=== PATIENT | male | born 1940 | race Caucasian/White ===

== ENCOUNTER 2025-06-20 15:22 | Inpatient (IN) | payer MEDICARE, OTHER, SELFPAY ==
[2025-06-20] VITALS (9 sets, daily range): BP systolic 143–159; BP diastolic 82–95; BMI 29.8
[2025-06-20 11:28] LABS: Hematocrit 35.9 % (39.0-52.0); Hemoglobin 12.0 g/dL (13.0-18.0); Mean Corp Hgb Conc. 33.4 g/dL (33.0-37.0); Mean Corpuscular Volume 91.1 fL (80.0-94.0); Nucleated Red Blood Cells % 0 % (-); Platelet Count 158 10^3/uL (130-400); Red Cell Dist. Width 14.2 % (11.5-14.5)
[2025-06-20 12:02] LABS: ALT (SGPT) 15 U/L (0-50); AST (SGOT) 21 U/L (17-59); Albumin 4.3 g/dl (3.5-5.0); Alkaline Phosphatase 67 U/L (38-126); Blood Urea Nitrogen 63 mg/dl (9-20); Calcium 9.1 mg/dl (8.4-10.2); Carbon Dioxide 17 mmol/L (22-30); Chloride 108 mmol/L (98-107); Glucose 116 mg/dl (70-99); Potassium 5.7 mmol/L (3.5-5.1); Sodium 137 mmol/L (135-145); Total Protein 6.9 g/dl (6.3-8.2); eGFR 6.72
--- NOTE | 2025-06-20 13:13 | ED.GENMED ---
History of Present Illness
General
Chief Complaint: Abnormal Lab Value
Source: patient, records and spouse
Exam Limitations: none
Time Seen by Provider: 06/20/25 12:38
Nursing documentation reviewed up to this point in time: agreed with
History of Present Illness
History of Present Illness:
85-year-old male referred by his PCP for acute renal failure, he has felt fatigued trouble urinating for a few weeks had outpatient blood work and a CAT scan that showed urinary obstruction, he states he voided 2 small amounts in the waiting room
air, no prior episodes, no fever or chills he drinks wine socially, not to excess non-smoker
He takes lisinopril, Norvasc, apparently started on Cipro recently
Past History
Past History
ED Past Medical History: Negative Arrthythmia or CAD
ED Past Surgical History: Negative Cardiac
Social History
Tobacco: Non-smoker
Alcohol: Occasional
Drug: None
Personal:
Living: with family
Employment: Retired
Review of Systems
Review of Systems
All Other Systems: Not applicable
Constitutional: Reports fatigue
EENT: Reports no symptoms
Respiratory: Reports no symptoms
ABD/GI: Reports anorexia
: Reports difficulty voiding
Musculoskeletal: Reports no symptoms
Skin: Reports no symptoms
Neurological: Reports weakness
Endocrine: Reports no symptoms
Phy Exam
Physical Exam
Physical Exam:
Physical Exam
General: no apparent distress, not acutely ill
Neck: Lips are dry
Heart: s1/s2 regular rate and rhythm, no murmur. equal radial pulses.
Lungs: no acute respiratory distress. clear bilaterally
Abdomen: Tenderness in the suprapubic region
Neuro: alert and oriented. no focal neurological deficits
Skin: no rash
Psychiatric: well kept. interactive and cooperative
Extremities: no edema.
Course
Orders/Labs/Results
Orders:
Orders
06/20/25 11:20
CBC/With Diff [Complete Blood Count/With Diff] Urgent
Comprehensive Metabolic Panel Urgent
06/20/25 13:06
Bladder Scan- Treatment ONCE
Boswell Placement- Treatment ONCE
Reason for insertion: Acute Retention
06/20/25 13:53
Urinalysis Reflex To Culture Urgent
Date Specimen was Collected: 06/20/25
Time Specimen was Collected: 13:49
06/20/25 14:01
0.9% Sodium Chloride 1000 ml [Nss] 2,000 ml IV BOLUS
06/20/25 14:02
diazePAM [Valium Injection] 5 mg IV NOW STA
06/20/25 14:05
Electrocardiogram (*1) Urgent
Reason for Study: Abdominal Pain
EKG- Treatment ONCE
Abnormal Lab Results
06/20/25
11:20
RBC 3.94 L 10^6/uL
(4.70-6.10)
Hgb 12.0 L g/dL
(13.0-18.0)
Hct 35.9 L %
(39.0-52.0)
Absolute Lymphs (auto) 1.0 L 10^3/uL
(1.2-3.4)
Neutrophils % 76.8 H %
(42.2-75.2)
Lymphocytes % 14.0 L %
(20.5-51.1)
Potassium 5.7 H mmol/L
(3.5-5.1)
Chloride 108 H mmol/L
(98-107)
Carbon Dioxide 17 L mmol/L
(22-30)
BUN 63 H mg/dl
(9-20)
Creatinine 7.4 H* mg/dL
(0.7-1.3)
Glucose 116 H mg/dl
(70-99)
06/20/25 11:20
06/20/25 11:20
Vital Signs
Initial and Last Documented VS:
Initial Vital Signs
Temp Pulse Resp BP Pulse Ox
98.6 F 104 16 159/95 98
06/20/25 11:11 06/20/25 11:11 06/20/25 11:11 06/20/25 11:11 06/20/25 11:11
Last Documented Vital Signs
Temp Pulse Resp BP Pulse Ox
98.6 F 104 16 159/95 98
06/20/25 11:11 06/20/25 11:11 06/20/25 11:11 06/20/25 11:11 06/20/25 13:14
MDM/Problems Addressed
Differential Diagnosis Includes:
ARF postobstructive versus prerenal versus renal
MDM/Problems Addressed:
ARF
*Radiology
Radiology exam reviewed: radiology read reviewed
*Pulse Oximetry
SaO2: 98
Oxygen Mode of Delivery: Room air
Patient hypoxic: no
*EKG
Interpreted by ED Provider?: Yes
Interpretation: abnormal
Comparison EKG: no comparison EKG present
Heart Rate: 78
Rate: normal
Ischemia: non-specific ST changes
*Parachute Marker Interpretation
Rate: normal
Interpretation: normal
Heart Rate: 78
Rhythm: sinus
*Critical Care Note
Total Time (30-74mins, 75-104mins- exclusive of procedures): Not Applicable
Data Reviewed
Review of Other/Old Records Reveals: Labs, Records and Radiology Studies
Source: patient, records and spouse
Prescriptions/Medications Considered But Not Given:
Treatment for hyperkalemia
Further Testing Considered But Not Given:
Ultrasound
Update Note
Update Note:
Update, workup pretty much completed as an outpatient, will BladderScan him ask RN to place Boswell will likely require admission
2 PM Boswell placed patient with over 1500 mL of dark tea bloody urine with some cramps will clamp the bag for now,
ED Attending Note
-
Portions of this chart may have been created with voice recognition software.� Occasional wrong word or��sound alike� substitutions may have occurred due to the inherent limitations of voice recognition software.
Discharge Plan
Departure
Patient Disposition: Admit
Date of Disposition: 06/20/25
Time of Disposition: 14:04
Admit to: Med/Surg
Presentation/result/management discussed w/ accepting MD/DO: Hospitalist
Patient with high blood pressure during this ER visit?: No
Condition: Fair
Covid-19: Not Applicable
Discharge Problem:
ARF (acute renal failure), Obstructed, uropathy
Prescriptions:
No Action
lisinopril 20 mg Tablet
20 mg PO DAILY
amlodipine [Norvasc] 10 mg Tablet
10 mg PO DAILY
ibuprofen [Advil] 200 mg Tablet
400 mg PO Q8HPRN PRN (Reason: mild pain)
fluticasone propionate [Flonase] 50 mcg/actuation [place],Suspension
1 spray INTRANASAL BIDPRN PRN (Reason: allergies)
ICaps AREDS 4,296 mcg-226 mg-90 mg Capsule
1 cap PO DAILY
ciprofloxacin HCl [Cipro] 500 mg Tablet
500 mg PO BID
Rx Instructions:
for 10 days starting 06/18/25
Interventions
Interventions:
*Risk Screen - Suicide Last Done: 06/20/25 13:47
*General Assessment Last Done: 06/20/25 13:47
*Neglect/Abuse Screening Last Done: 06/20/25 13:47
*ED COVID-19 Vaccine History Last Done: 06/20/25 13:47
Discharge Date and Time
Print Language: ESTONIAN
[2025-06-20 14:08] LABS: Urine Character Clear (Clear)
--- NOTE | 2025-06-20 14:15 | W.CON.NEPH ---
Consultation
-
Date/Time Consultation Requested: 06/20/2025 2:00 PM
Date/Time Consultation Performed: 06/20/2025 2:00 PM
Requesting Provider: Dr. Aponte
Performing Provider: Dr. Beck
Reason for Consultation: Acute renal failure/metabolic acidosis/hyperkalemia
Medical History
-
Chief Complaint: Acute kidney failure/hyperkalemia/metabolic acidosis
History of Present Illness:
85-year-old male referred by his PCP for acute renal failure, he has felt fatigued trouble urinating for a few weeks had outpatient blood work and a CAT scan that showed urinary obstruction, he states he voided 2 small amounts the patient was
recently initiated on ciprofloxacin for suspected UTI. He does frequently use NSAIDs for joint pains. he is maintained on amlodipine and lisinopril for hypertension. When he presented to the hospital he was in acute renal failure with a creatinine
of 7.4 and a potassium of 5.7 with associated nongap metabolic acidosis. Boswell catheter was placed with large bloody output [id number]. Nephrology was consulted for acute kidney injury hyperkalemia and nongap metabolic acidosis.
Past Medical History
Hypertension
Social History
Tobacco: Smoker
Alcohol: Occasional
Family History
No CKD
Allergies / Home Medications
Allergy/AdvReac Type Severity Reaction Status Date / Time
No Known Allergies Allergy Verified 06/20/25 11:10
�Medication �Instructions �Recorded �Confirmed �Type
amlodipine 10 mg tablet (Norvasc) 10 mg PO DAILY 06/20/25 06/20/25 History
ciprofloxacin HCl 500 mg tablet 500 mg PO BID 06/20/25 06/20/25 History
(Cipro)
fluticasone propionate 50 1 spray intranasal BIDPRN PRN 06/20/25 06/20/25 History
mcg/actuation nasal allergies
spray,suspension
ibuprofen 200 mg tablet (Advil) 400 mg PO Q8HPRN PRN mild pain 06/20/25 06/20/25 History
lisinopril 20 mg tablet 20 mg PO DAILY 06/20/25 06/20/25 History
vitamins A,C,E-ysve-xbxsio 4,296 1 cap PO DAILY 06/20/25 06/20/25 History
mcg-226 mg-90 mg capsule
Review of Systems
-
History Source: Patient
All other systems: Negative unless noted
EENT: No Symptoms
Respiratory: No Symptoms
Cardiac: No Symptoms
Abdomen/GI: No Symptoms
: Dysuria, Difficulty Voiding and Bleeding
Musculoskeletal: Edema
Physical Exam
Vital Signs
Vital Signs
Temp Pulse Resp BP Pulse Ox
98.6 F 104 16 159/95 98
06/20/25 11:11 06/20/25 11:11 06/20/25 11:11 06/20/25 11:11 06/20/25 13:14
Lab Results
06/20/25 11:20
06/20/25 11:20
WBC 7.5 10^3/uL (4.8-10.8) 06/20/25 11:20
RBC 3.94 10^6/uL (4.70-6.10) L 06/20/25 11:20
Hgb 12.0 g/dL (13.0-18.0) L 06/20/25 11:20
Hct 35.9 % (39.0-52.0) L 06/20/25 11:20
Plt Count 158 10^3/uL (130-400) 06/20/25 11:20
Sodium 137 mmol/L (135-145) 06/20/25 11:20
Potassium 5.7 mmol/L (3.5-5.1) H 06/20/25 11:20
Chloride 108 mmol/L (98-107) H 06/20/25 11:20
Carbon Dioxide 17 mmol/L (22-30) L 06/20/25 11:20
BUN 63 mg/dl (9-20) H 06/20/25 11:20
Creatinine 7.4 mg/dL (0.7-1.3) H* 06/20/25 11:20
eGFR 6.72 06/20/25 11:20
Glucose 116 mg/dl (70-99) H 06/20/25 11:20
Calcium 9.1 mg/dl (8.4-10.2) 06/20/25 11:20
Albumin 4.3 g/dl (3.5-5.0) 06/20/25 11:20
Physical Exam
General: AOx3, Nontoxic , NAD
HEENT: PERRL, EOMI, Anicteric, Conjunctivae Clear, Ear/Nose Intact, Hearing Normal, Oropharynx Clear/Moist, Dentition Intact, Facial Symmetry, Neck Supple, Neck: Trachea Midline, No JVD and No Thyromegaly, no Bruits
Respiratory: Clear to auscultation bilaterally with normal lung excursion
Cardiac: S1/S2 and Regular Rate/Rhythm
Breast: Deferred by me
Abdomen: Soft, Nontender, Nondistended, Normal Bowel Sounds and No Hepatosplenomegaly
Rectal: Deferred by Provider
Genito-urinary: No Costovertebral Tenderness, Boswell with bloody urine
Extremities: No Clubbing, No Cyanosis and Noted plus one pitting Edema
Skin: No Rash or open lesions
Neuro: Nonfocal/Grossly Intact, CN II-XII (Intact) and Strength (Musculoskeletal exam 5 out of 5 both upper and lower extremities), no asterixis
Hematologic/Lymphatic: No Cervical Lymphadenopathy, No Submandibular Lymphadenopathy and No Supraclavicular Lymphadenopathy
Psych: Mood/afflect pleasant, Insight/judgement good and Appropriate
Vascular: plus 1 pedal and radial pulses
Data Reviewed
-
CT Scan: Report Reviewed by me (Report reviewed of CT of abdomen and pelvis: Notable for bilateral hydronephrosis, distended bladder with likely underlying cystitis)
Labs: Labs Reviewed by me (BMP)
Old Records: Reviewed (Reviewed old labs from date May 15, 2025 creatinine 0.89)
Assessment/Plan
-
Impression:
DILLON (7.4) with bilateral hydronephrosis with suspected bladder outlet obstruction
Hyperkalemia
Nongap metabolic acidosis (AG12)
BPH
Hypertension
Plan:
DILLON: Suspected due to bilateral hydronephrosis from bladder outlet obstruction
Boswell placed
Gross amount of connie blood pouring out will require CBI and urology follow-up for eventual cystoscopy
No acute dialysis requirement yet
Would administer half-normal saline with 75 meq sodium bicarbonate at 100 cc/hr
Closely follow BMP and electrolytes
Hyperkalemia should improve with establishing urinary conduit and alkalize IV fluid
Hold lisinopril and NSAIDs
HTN:
maintain amlodipine
[2025-06-20 14:19] LABS: Urine Red Blood Cell >100 /HPF (0-2); Urine Squamous Cell 0-2 /LPF (Few)
--- NOTE | 2025-06-20 14:40 | W.PN.UPDATE ---
Update Note
Progress Note Update
This note serves as an addendum to the H&P by Jemima Angulo on 06/20/25.
History of Presenting Illness
85 y/o male past medical history of hypertension who presents with urinary retention and abnormal labs. Patient reports increased difficulty urinating over the past few weeks. Patient reports increased fatigue recently. He saw his PCP who ordered
blood work as well as a CT scan. CT scan revealed severely distended bladder with moderate hydronephrosis. Blood work revealed Cr 5.8. With these findings his PCP reffered him to the emergency department for evaluation. Patient denies any
fevers, sweats or chills.
Vital Signs
AFVSS, except intermittently tachycardic
On room air saturating well
Physical Exam
General: Comfortable and Conversant
HEENT: Anicteric and Moist mucous membranes
Respiratory: Clear and Non Labored Respirations
Cardiac: S1/S2 and Regular Rhythm
GI: Soft and Non Tender
Genito-urinary: Bloody Urine and Boswell
Musculoskeletal: No Cyanosis. Bilateral lower extremity edema.
Skin: Warm and Dry
Neuro: Awake, Alert, Oriented and Nonfocal/grossly intact
Psych: Calm
Assessment/Plan
Moderate Hydronephrosis Secondary to Severely Distended Bladder on outside CT imaging
Acute Kidney Injury / Hyperkalemia secondary to Bladder Outlet Obstruction
BPH
-Boswell placed in the emergency room
-Hold lisinopril and NSAIDs
-Consult Nephrology
-Since gross amount of connie blood pouring out, continue CBI
-Continue IVFs with half-normal saline with 75 meq sodium bicarbonate at 100 cc/hr
-Recheck labs later this evening and in AM
Bladder Outlet Obstruction / Gross Hematuria
-Initially Boswell catheter was placed and patient subsequently developed gross hematuria
-Reviewed with Urology who recommends placement of 3-Way catheter and to start CBI
-Monitor H&H
-Start Flomax
-Urinalysis is not consistent with infection, review of urinalysis from outpatient a few days prior (presumably before Cipro was given) was also without suggestion of UTI, WBCs are normal and patient is afebrile -- therefore hold on antibiotics
(although outside imaging suggested concern for pyelonephritis and cystitis, clinical picture is not consistent with that) -- I confirmed with Dr. Valladares who is in agreement that no antibiotics are needed at this time
Non-Anion Gap Metabolic Acidosis
Hyperkalemia
-With relief of obstruction and alkaline IV fluids as above, potassium and acid-base status should improved
-Recheck BMP
Prior Reaction to Ciprofloxacin
New Right Lower Extremity Swelling
-Noted on outside records -- no DVT on recent ultrasound
Essential Hypertension
-Lisinopril on hold due to hyperkalemia and DILLON
-Continue amlodipine with old parameters
Small Bilateral Pleural Effusion and Bilateral Atelectasis
-Based on outside records
-Incentive Spirometer
History of LBBB based on outside records
-Sees outpatient cardiology
Severe Induration of the subcutaneous fat of the lower abdominal wall, on CT Imaging
Diverticulosis
Degenerative Changes in the Spine on outside imaging
Vitamin D Deficiency
DVT Prophylaxis: SCDs only given Hematuria in the urine -- if Hgb stable, can consider starting Heparin subq or Lovenox subq for DVT prophylaxis
Code Status: Full Code
--- NOTE | 2025-06-20 14:48 | HPS.HSE ---
Family Physician
-
Family Physician: Allen Sanchez
Chief Complaint
-
Abnormal Labs, Urinary Retention
History of Present Illness
Patient is an 85 y/o male past medical history of hypertension who presents with urinary retention and abnormal labs. Patient reports increased difficulty urinating over the past few weeks. Patient reports increased fatigue recently. He saw his
PCP who ordered blood work as well as a CT scan. CT scan revealed severely distended bladder with moderate hydronephrosis. Blood work revealed Cr 5.8. With these findings his PCP reffered him to the emergency department for evaluation. Patient
denies any fevers, sweats or chills.
Medical History
Past Medical History
Past Medical History: Reports Other
Additional Past Medical History:
Essential Hypertension
Past Surgical History: Reports Other
Additional Past Surgical History:
Tonsillectomy
Social History
Tobacco: Non-smoker
Alcohol: Daily (Glass of wine nightly)
Family History
Family History: Not pertinent
Allergies / Home Medications
Allergies reflects when Allergies were last updated in [facility].
Home Medications with original date entered in [facility]
Allergy/Medication List:
Allergies
Allergy/AdvReac Type Severity Reaction Status Date / Time
No Known Allergies Allergy Verified 06/20/25 11:10
Home Medications
amlodipine 10 mg tablet (Norvasc) 10 mg PO DAILY 06/20/25
ciprofloxacin HCl 500 mg tablet (Cipro) 500 mg PO BID 06/20/25
fluticasone propionate 50 mcg/actuation nasal spray,suspension 1 spray intranasal BIDPRN PRN allergies 06/20/25
ibuprofen 200 mg tablet (Advil) 400 mg PO Q8HPRN PRN mild pain 06/20/25
lisinopril 20 mg tablet 20 mg PO DAILY 06/20/25
vitamins A,C,F-hyzh-bjpyfh 4,296 mcg-226 mg-90 mg capsule 1 cap PO DAILY 06/20/25
Review of Systems
-
A 12 point ROS was completed and negative except as noted: Yes
Constitutional: Denies Fever or Chills
Respiratory: Denies Cough or Trouble Breathing
Cardiac: Denies Chest Pain or Palpitations
: Reports See HPI
Physical Exam
Vital Signs
Vital Signs
Temp Pulse Resp BP Pulse Ox
98.6 F 104 16 159/95 98
06/20/25 11:11 06/20/25 11:11 06/20/25 11:11 06/20/25 11:11 06/20/25 13:14
Physical Exam
General: Comfortable and Conversant
HEENT: Anicteric and Moist mucous membranes
Respiratory: Clear and Non Labored Respirations
Cardiac: S1/S2 and Regular Rhythm
GI: Soft and Non Tender
Genito-urinary: Bloody Urine and Boswell
Musculoskeletal: No Clubbing and No Cyanosis
Skin: Warm and Dry
Neuro: Awake, Alert, Oriented and Nonfocal/grossly intact
Psych: Calm
Laboratory Results
-
Laboratory Results
Total Bilirubin 0.8 mg/dl (0.2-1.3) 06/20/25 11:20
AST 21 U/L (17-59) 06/20/25 11:20
ALT 15 U/L (0-50) 06/20/25 11:20
Alkaline Phosphatase 67 U/L (38-126) 06/20/25 11:20
Data Reviewed
-
Lab Data: Labs Reviewed by me
Old Records: Reviewed
Impression/Plan
-
Acute Kidney Injury / Hyperkalemia secondary to Bladder Outlet Obstruction
-Consult Nephrology
-Continue IVFs
-Recheck labs later this evening and in AM
Bladder Outlet Obstruction / Gross Hematuria
-Initially Boswell catheter was placed and patient subsequently developed gross hematuria
-Reviewed with Urology who recommends placement of 3-Way catheter and to start CBI
-Monitor H&H
-Start Flomax
-Urinalysis is not consistent with infection therefore will stop antibiotics
Essential Hypertension
-Lisinopril on hold due to hyperkalemia and DILLON
-Continue amlodipine with old parameters
DVT proph:SCDs
Code Status: Full Code
[2025-06-20] MEDS: VALIUM INJECTION 5 MG IV (14:54)
[2025-06-20] MEDS: NSS 2000 IV (15:00)
--- NOTE | 2025-06-20 16:32 | CM ---
Patient seen bedside in ED. Initial assessment completed. Patient is an 85 y/o male past medical history of hypertension who presents with urinary retention and abnormal labs.
Patient resides w/ spouse in a 2STH, 2 pr 3 steps to enter from the outside. Master bedroom, bathroom, kitchen are on the first floor. Patient is independent in all areas, no supportive devices needed. Has grab bar and shower stool in bathroom.
Denies SNF/HC hx.
Address, point of contact and insurance verified
PCP: Allen Sanchez
Pharmacy: [facility]
Plan: Home, will watch for needs
[2025-06-20] MEDS: FLOMAX 0.4 MG PO (17:57)
[2025-06-20] MEDS: SODIUM BICARBONATE 1075 MEQ IV (18:13)
--- NOTE | 2025-06-20 18:18 | CONS.URO ---
Consultation
-
Date/Time Consultation Requested: 06/20/25
Date/Time Consultation Performed: 06/20/25
Requesting Provider: ED
Performing Provider: Jacquelyn
Reason for Consultation: hematuria, AUR, BPH, hydronephrosis, ARF
Medical History
History of Present Illness
85M presenting w/ urinary retention and abnormal labs (Cr 5.8 sa outpatient w/ PCP).
Reports worsening difficulty w/ voiding in last few weeks and increase fatigue.
PCP ordered labs and CT imaging.
CT imaging (outside [facility]) => moderate bilateral hydronephrosis, bladder distention, and enlarged prostate gland.
Cr noted to be 5.8 - referred to [facility] ED.
? Started by PCP on Ciprofloxacin for suspected prostatitis/cUTI.
Review of outpatient labs (05/2025) demonstrates Cr WNL and PSA 2.5.
No prior urologic evaluation.
No prior mention of BPH diagnosis per patient.
Past Medical History
Past Medical History: HTN
Past Surgical History: Tonsilectomy
Social History
Tobacco: Non-smoker
Alcohol: Daily (glass of wine nightly)
Drug: None
Employment: Retired
Family History
Family History: Reviewed & Not Pertinent
Allergies/Home Medications
Allergies
Allergy/AdvReac Type Severity Reaction Status Date / Time
No Known Allergies Allergy Verified 06/20/25 11:10
Home Medications
�Medication �Instructions �Recorded �Confirmed �Type
amlodipine 10 mg tablet (Norvasc) 10 mg PO DAILY 06/20/25 06/20/25 History
ciprofloxacin HCl 500 mg tablet 500 mg PO BID 06/20/25 06/20/25 History
(Cipro)
fluticasone propionate 50 1 spray intranasal BIDPRN PRN 06/20/25 06/20/25 History
mcg/actuation nasal allergies
spray,suspension
ibuprofen 200 mg tablet (Advil) 400 mg PO Q8HPRN PRN mild pain 06/20/25 06/20/25 History
lisinopril 20 mg tablet 20 mg PO DAILY 06/20/25 06/20/25 History
vitamins A,C,G-qlrl-dtoqeb 4,296 1 cap PO DAILY 06/20/25 06/20/25 History
mcg-226 mg-90 mg capsule
Physical Exam
Vital Signs
Vital Signs
Temp Pulse Resp BP Pulse Ox
98.6 F 105 20 154/82 94
06/20/25 11:11 06/20/25 16:50 06/20/25 16:50 06/20/25 16:50 06/20/25 16:50
Physical Exam
General: Well Developed, Well Nourished and No Apparent Distress
HEENT: Normocephalic and Anicteric
Respiratory: Non Labored Respirations
Cardiac: Regular Rhythm
Breast: N/A
GI: Soft, Non Tender and Non Distended
Rectal: Deferred by Provider
Genito-urinary: No Costovertebral Tend, Bloody Urine and Boswell Catheter
Skin: Warm and Dry
Neuro: AO x 3, No Motor Deficits and Nonfocal/Grossly Intact
Hematologic/Lymphatic: No Lymphadenopathy
Psych: Calm and Intact Judgement
Assessment / Plan
-
Hematuria - secondary to rapid bladder decompression
Acute urinary retention
BPH w/ HOLGUIN
Bilateral hydronephrosis
Acute renal failure
H/H WNL
Cr 7.4
UA +RBCs
Boswell catheter placed in ED => 1500 cc dark bloody UOP
Urine bloody in tubing w/o clots, aqueous dark in drainage bag.
- Exchange 2-way catheter to 3-way and initiate CBI
- UA not indicative of UTI - no indication for abx at this time
- Trend Cr and lytes for post-obstructive diuresis
- Start tamsulosin 0.4 mg qhs and finasteride 5 mg daily for BPH
D/w Hospitalist.
Data Reviewed
-
Total Time Spent with Patient (in minutes): 40
Diagnostic Radiology: Discussed with Physician
CT Scan: Report Reviewed by Me and Discussed with Physician
Lab Data: Labs Reviewed and Discussed with Physician
Old Records: Reviewed
[2025-06-20 18:38] LABS: Hematocrit 35.7 % (39.0-52.0); Hemoglobin 12.2 g/dL (13.0-18.0)
[2025-06-20 19:02] LABS: Blood Urea Nitrogen 55 mg/dl (9-20); Calcium 8.9 mg/dl (8.4-10.2); Carbon Dioxide 19 mmol/L (22-30); Chloride 109 mmol/L (98-107); Estimated Creatinine Clearance 10 ml/min; Glucose 115 mg/dl (70-99); Potassium 4.5 mmol/L (3.5-5.1); Sodium 142 mmol/L (135-145); eGFR 8.31
[2025-06-21 03:23] VITALS: BP 142/79
[2025-06-21] MEDS: SODIUM BICARBONATE 1075 MEQ IV (05:27)
[2025-06-21 06:00] VITALS: BMI 27.9
[2025-06-21 07:30] VITALS: BP 153/88
--- NOTE | 2025-06-21 07:45 | W.PN.URO.CBU ---
Today's Communication / Plan
-
- Wean CBI as tolerated in next 24 hrs
- Possible CBI clamp trial in AM (06/22)
- Trend Cr and lytes for post-obstructive diuresis
- Started on tamsulosin 0.4 mg qhs and finasteride 5 mg daily (ordered by Urology)
D/w patient.
D/w Hospitalist.
Assessment / Plan
-
Hematuria - secondary to rapid bladder decompression
Acute urinary retention
BPH w/ HOLGUIN
Bilateral hydronephrosis
Acute renal failure
H/H stable
Cr 7.4 => 6.2 => 5.5
UA +RBCs
Diagnosis
-
Date of Service: June 21, 2025
-
Patient Diagnosis:
Hematuria - secondary to rapid bladder decompression
Acute urinary retention
BPH w/ HOLGUIN
Bilateral hydronephrosis
Acute renal failure
Subjective
-
Having breakfast.
Denies abdominal/suprapubic pain.
Urine clear in tubing on medium rate CBI.
Objective
-
Vital Signs
Temp Pulse Resp BP Pulse Ox
97.4 F 95 16 153/88 97
06/21/25 07:30 06/21/25 07:30 06/21/25 07:30 06/21/25 07:30 06/21/25 07:30
Intake and Output
06/20/25 06/21/25 06/22/25
06:59 06:59 06:59
Intake Total 960 / 960
Output Total 2245 / 7745
Balance -6785 / -6785
Intake:
Oral fluids 960 / 960
Output:
True Urine Output from CBI 7745 / 7745
Laboratory Results
06/21/25 06:15
Physical Exam
-
General - well developed, well nourished, no acute distress
Abdomen - soft, non-tender, non-distended
- 3-way catheter in place w/ clear outflow on medium rate CBI, no clots
Skin - warm & dry with no rash
Extremities - no clubbing, no cyanosis, no edema
Care Review
Data Reviewed
Discussed with: Hospitalist and Nursing
CT Scan: Report Pers Reviewed
Total Time Spent with Patient (in minutes): 35
[2025-06-21 08:00] LABS: Hematocrit 33.1 % (39.0-52.0); Hemoglobin 11.5 g/dL (13.0-18.0); Mean Corp Hgb Conc. 34.7 g/dL (33.0-37.0); Mean Corpuscular Volume 88.0 fL (80.0-94.0); Platelet Count 128 10^3/uL (130-400); Red Cell Dist. Width 13.9 % (11.5-14.5)
[2025-06-21] MEDS: FLOMAX 0.4 MG PO (08:36)
[2025-06-21] MEDS: NORVASC 10 MG PO (08:37)
[2025-06-21 08:53] LABS: Blood Urea Nitrogen 55 mg/dl (9-20); Calcium 8.7 mg/dl (8.4-10.2); Carbon Dioxide 22 mmol/L (22-30); Chloride 109 mmol/L (98-107); Estimated Creatinine Clearance 11 ml/min; Glucose 104 mg/dl (70-99); Magnesium 2.5 mg/dl (1.6-2.3); Potassium 4.1 mmol/L (3.5-5.1); Sodium 142 mmol/L (135-145); eGFR 9.59
--- NOTE | 2025-06-21 09:45 | PTCARENOTE ---
Addendum entered by Kofi Saldana RN 06/21/25 12:55:
Heart rate varying now from 130s to 160s on telemetry. Toprol administered at 12:17pm. Dr Reyes notified. Advised to keep monitoring for now.
Original Note:
At 0800 tachycardia noted on telemetry. HR 120s to 140s. Rhythm regular/irregular. Some P waves visible. Pt asymptomatic, resting in bed. VSS. EKG revealing ST. Dr Murray made aware. Cardiology consulted.
--- NOTE | 2025-06-21 09:55 | W.PN.HOSP.TC ---
Today's Communication/Plan
-
Check TSH
Cardiology consult
Continue CBI
Assessment / Plan
Assessment / Plan
Gen-AAOx3, NAD
HEENT-NC, AT, anicteric, clear oral mm
Neck-supple
CV-reg, no M, +S1/S2
Lungs-clear B/L
Abd-soft, NT, ND
Ext-no edema
Musculoskeletal-no cyanosis, clubbing
Skin-warm and dry
Neuro-grossly non-focal
Psych-calm, cooperative
DILLON -due to obstructive uropathy from bladder outlet obstruction, due to BPH. Bilateral hydronephrosis.
Boswell catheter inserted. Urology consulted. Nephrology consulted.
Creatinine trending down.
Gross hematuria -due to rapid bladder decompression. Continuous bladder irrigation per urology.
Normal anion gap metabolic acidosis -due to DILLON. Improving on bicarb drip.
Tachycardia -sinus versus atrial tach versus other. Patient states he has had fast heart rates every morning for the past couple weeks, settles down in the afternoon. Has minimal symptoms of chest tightness with it. Cardiology consulted. Check
TSH. Electrolytes are normal.
Hyperkalemia -due to DILLON, resolved. Hold lisinopril.
Acute thrombocytopenia -128k, unclear etiology, monitor for now.
Essential hypertension -continue amlodipine.
Diverticulosis
vitamin D deficiency
Full code
Anticipated Discharge: > 48 hours
Subjective/Interval History
-
Date of Service: June 21, 2025
Patient seen and examined. No complaints.
Objective Data
-
Labs:
Laboratory Results
06/21/25
06:15
WBC 7.3
Hgb 11.5 L
Hct 33.1 L
Plt Count 128 L
Sodium 142
Potassium 4.1
Chloride 109 H
Carbon Dioxide 22
BUN 55 H
Creatinine 5.5 H*
Glucose 104 H
Calcium 8.7
Vital Signs:
Vital Signs
Temp Pulse Resp BP Pulse Ox
97.4 F 95 16 153/88 97
06/21/25 07:30 06/21/25 07:30 06/21/25 07:30 06/21/25 07:30 06/21/25 07:30
I&O
06/20/25 06/21/25 06/22/25
06:59 06:59 06:59
Intake Total 960 / 960
Output Total 7745 / 7745
Balance -6785 / -6785
Review of Systems
-
History Source: Patient
All other systems: Reviewed and negative
--- NOTE | 2025-06-21 11:11 | W.PN.NEPH.PH ---
Today's Communication / Plan
-
Maintain IV fluids with half-normal
Maintain Boswell and CBI at direction of urology
Acute kidney injury and hyperkalemia resolved
No dialysis indication
Assessment/Plan
-
Impression:
DILLON (7.4) with bilateral hydronephrosis with suspected bladder outlet obstruction, baseline in 0.89 as of 05/30
Hyperkalemia
Nongap metabolic acidosis (AG12)
BPH
Hypertension
Plan:
DILLON: Suspected due to bilateral hydronephrosis from bladder outlet obstruction
Boswell placed
Creatinine corrected down to 5.5 and potassium down to 4.1 and remains grossly nonoliguric in setting of CBI with clearing of urine
No acute dialysis requirement
Will change IV fluids to half-normal at 125 cc/hr
Closely follow BMP and electrolytes
Hyperkalemia improved with outlet obstruction release
Holding lisinopril and NSAIDs
HTN:
maintain amlodipine
May need to transition antihypertensive to alternative agent if edema that does not resolve
-
-
Date of Service: June 21, 2025
CC / HPI / ROS
-
Chief Complaint:
DILLON
Hyperkalemia
Metabolic acidosis
Hypertension
History of Present Illness:
Metabolic acidosis improving with alkaline IV fluid
Hemodynamically stable on amlodipine
Creatinine improving down to 5.5 and grossly nonoliguric via Boswell
Hyperkalemia resolved
Review of Systems:
Nonoliguric
Urine clearing with CBI
No chest pain or shortness of breath
Labs
-
Labs:
WBC 7.3 10^3/uL (4.8-10.8) 06/21/25 06:15
RBC 3.76 10^6/uL (4.70-6.10) L 06/21/25 06:15
Hgb 11.5 g/dL (13.0-18.0) L 06/21/25 06:15
Hct 33.1 % (39.0-52.0) L 06/21/25 06:15
Plt Count 128 10^3/uL (130-400) L 06/21/25 06:15
Sodium 142 mmol/L (135-145) 06/21/25 06:15
Potassium 4.1 mmol/L (3.5-5.1) 06/21/25 06:15
Chloride 109 mmol/L (98-107) H 06/21/25 06:15
Carbon Dioxide 22 mmol/L (22-30) 06/21/25 06:15
BUN 55 mg/dl (9-20) H 06/21/25 06:15
Creatinine 5.5 mg/dL (0.7-1.3) H* 06/21/25 06:15
eGFR 9.59 06/21/25 06:15
Glucose 104 mg/dl (70-99) H 06/21/25 06:15
Calcium 8.7 mg/dl (8.4-10.2) 06/21/25 06:15
Albumin 4.3 g/dl (3.5-5.0) 06/20/25 11:20
Physical Exam
-
Vital Signs:
Vital Signs
Temp Pulse Resp BP Pulse Ox
97.4 F 95 16 153/88 97
06/21/25 07:30 06/21/25 07:30 06/21/25 07:30 06/21/25 07:30 06/21/25 07:30
Cardiovascular:: Regular rate and rhythm
Respiratory:: Bilateral: CTA
Lung Excursion:: Normal
Abdomen:: Nontender and Soft
Bowel Sounds:: Normal
Extremity Edema:: +2: Bilateral:
Boswell Catheter: Yes
Other Findings::
CBI
[2025-06-21 11:32] VITALS: BP 115/78
--- NOTE | 2025-06-21 11:45 | CON.CAR ---
Addendum entered and electronically signed by Johnathan Reyes MD 06/21/25 12:22:
I saw and examined the patient.
The COLLAR STARCHER or PA's note was reviewed and I agree with the note.
Comment: General: Well developed, well nourished in NAD.
Neck: Supple, no JVD, HJR, carotids +2 B/L, no bruits bilaterally.
Heart: Non displaced PMI, irregular, no murmurs, No S3, S4, no rubs.
Lungs: Clear to auscultation bilaterally, no wheeze, rhonchi, rubs bilaterally,
normal expiratory phase.
Abdomen: Normal bowel sounds, soft, non-tender, non-distended.
Extremities: No clubbing, cyanosis or edema bilaterally.
Neuro: Grossly nonfocal, awake, alert and oriented x3.
Oziel has a history of hypertension and left bundle branch block followed by Dr. Stern with [facility]. He resents with urinary retention and a creatinine of 5.8 with hydronephrosis and hematuria. Cardiology consulted for A-fib seen on
monitor. He denies any chest pain, short breath, or palpitations. He has noted chest discomfort as an outpatient and heart rates in the 110s to 120s in the past few weeks however. He is asymptomatic with A-fib in the hospital.
Will control heart rate with metoprolol. Will hold off on anticoagulation when hematuria but will plan anticoagulation prior to discharge and when safe from a urologic standpoint. Patient reports an echocardiogram in the past few months at [facility] and will try to obtain results. Discussed detail with patient and as well as hospitalist.
Original Note:
Consultation
Consultation Request
Date/Time Consultation Requested: 06/21/2025
Date/Time Consultation Performed: 06/21/2025, 11 AM
Requesting Provider: Dr. Murray
Performing Provider: SHIRIN Causey for Dr. Reyes
Reason for Consultation: A-fib
Medical History
-
Chief Complaint: Elevated heart rate
History of Present Illness:
85-year-old male with past medical history hypertension and left bundle branch block followed by Dr. Schulz at [facility] presented to [facility] on 06/20/2025 with urinary retention and outpatient labs with creatinine 5.8. He was referred to the ED.
Previous CT imaging of bladder revealed bilateral hydronephrosis, bladder distention, enlarged prostate. He is being followed by urology and nephrology and is on continuous bladder irrigation and has Boswell. Creatinine on admission 7.4 and
potassium 5.7. Creatinine trending down and was 5.5 today, potassium 4.1. He initially had hematuria thought to be due to rapid bladder decompression.
Cardiology consulted 06/21/2025 for tachycardia with concern for atrial tachycardia versus atrial fibrillation.
EKG 06/21/2025 reviewed: Atrial fibrillation with left bundle branch block
Patient reports 2-week history of elevated heart rates in the morning. He checks his heart rate daily and it is usually in the 80s but has been in the 110s to 120s for the past 2 weeks with assoc chest tightness, but then improves to the 80s later
in the day. He denies palpitations, lightheadedness, shortness of breath.
He has no history of atrial fibrillation or other arrhythmias. Denies history of CAD, heart failure, diabetes. Previously tested for sleep apnea and was negative. No history of bleeding, besides current hematuria.
Follows with outpatient varnisher every 6 months and had echo and stress test about 6 months ago. 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
Hypertension is treated with lisinopril and amlodipine. Lisinopril currently on hold due to acute kidney injury.
Past medical history:
Hypertension
Left bundle branch block
DILLON
Bladder outlet obstruction due to BPH
Bilateral hydronephrosis
Past Medical History
Past Medical History: Other
Past Surgical History: Tonsilectomy
Social History
Tobacco: Non-Smoker
Alcohol: Occasional (1 glass of wine daily, occasional scotch)
Personal:
Living: With Family
Family History
Family History: Other (Mother with rheumatic fever and had AVR)
Allergies / Home Medications
Allergy/AdvReac Type Severity Reaction Status Date / Time
No Known Allergies Allergy Verified 06/20/25 11:10
�Medication �Instructions �Recorded �Confirmed �Type
amlodipine 10 mg tablet (Norvasc) 10 mg PO DAILY 06/20/25 06/20/25 History
ciprofloxacin HCl 500 mg tablet 500 mg PO BID 06/20/25 06/20/25 History
(Cipro)
fluticasone propionate 50 1 spray intranasal BIDPRN PRN 06/20/25 06/20/25 History
mcg/actuation nasal allergies
spray,suspension
ibuprofen 200 mg tablet (Advil) 400 mg PO Q8HPRN PRN mild pain 06/20/25 06/20/25 History
lisinopril 20 mg tablet 20 mg PO DAILY 06/20/25 06/20/25 History
vitamins A,C,X-[id number]-tnwywa 4,296 1 cap PO DAILY 06/20/25 06/20/25 History
mcg-226 mg-90 mg capsule
Review of Systems
-
History Source: Patient
All other systems: Negative unless noted
Physical Exam
Vital Signs
Temp Pulse Resp BP Pulse Ox
98.5 F 125 18 115/78 96
06/21/25 11:32 06/21/25 11:32 06/21/25 11:32 06/21/25 11:32 06/21/25 11:32
GEN: No distress, awake, Ox3
HEENT: supple, anicteric, mmm
LUNGS: CTA, no wheezes/rales
CV: Irregular, irregular, tachy
ABD: soft, BS+, NT/ND
EXT: Trace lower extremity edema
NEURO: Gross non-focal
SKIN: No rash
Lab Results
06/21/25 06:15
06/21/25 06:15
Impression / Plan
-
PCP: Allen Sanchez
Primary varnisher: Dr. Jazz Harrell
Impression
Atrial fibrillation, new diagnosis
Hypertension
Left bundle branch block
Acute kidney injury in setting of bilateral hydronephrosis with suspected bladder outlet obstruction
BPH
Hyperkalemia
Previous cardiovascular testing:
Patient reports echo and stress test approximately 6 months ago through primary varnisher. Will attempt to obtain records
Plan:
Atrial fibrillation
- New diagnosis
- Heart rates rapid up to 140s
- Start Toprol 25 mg twice daily for rate control-I ordered
- [id number] score is 3
- Ideally should be anticoagulated however given hematuria will hold off for now
- Ideally start oral anticoagulation once DILLON, hematuria have resolved and patient not having any procedures
- If DILLON and hematuria resolved but patient having procedure, would start heparin
-obtain records from [facility], likely won't be until Monday.
-check TSH
- Consider repeat outpatient sleep study. Patient reports negative sleep study in distant past but given new diagnosis of A-fib and him waking up with elevated heart rate for past 2 weeks would reevaluate.
Hypertension
- He continues on home amlodipine
- Lisinopril on hold due to DILLON
- Starting metoprolol succinate
Left bundle branch block
- Patient reports this is chronic for years
- Obtain previous stress and echo results
- No symptoms of advanced heart block
Discussed with pt and at bedside
Data Reviewed
-
EKG: Tracing Personally Visualized and interpreted
Labs: Labs Reviewed by me
[2025-06-21] MEDS: 0.45%NACL 1000 IV ×2 (12:17→20:10)
[2025-06-21] MEDS: TOPROL XL 25 MG PO ×2 (12:17→19:54)
[2025-06-21 14:00] LABS: TSH 2.03 uIU/ml (0.47-4.68)
[2025-06-21 15:35] VITALS: BP 107/66
[2025-06-21 19:13] VITALS: BP 120/58
[2025-06-21 23:15] VITALS: BP 130/76
[2025-06-22 03:00] VITALS: BP 131/82
[2025-06-22] MEDS: 0.45%NACL 1000 IV ×2 (05:29→12:35)
[2025-06-22 06:00] VITALS: BMI 27.6
[2025-06-22 07:55] VITALS: BP 132/82
[2025-06-22 08:01] LABS: Hematocrit 30.4 % (39.0-52.0); Hemoglobin 10.2 g/dL (13.0-18.0); Mean Corp Hgb Conc. 33.6 g/dL (33.0-37.0); Mean Corpuscular Volume 91.0 fL (80.0-94.0); Nucleated Red Blood Cells % 0 % (-); Platelet Count 132 10^3/uL (130-400); Red Cell Dist. Width 14.0 % (11.5-14.5)
[2025-06-22 08:28] LABS: Blood Urea Nitrogen 47 mg/dl (9-20); Calcium 7.9 mg/dl (8.4-10.2); Carbon Dioxide 23 mmol/L (22-30); Chloride 108 mmol/L (98-107); Estimated Creatinine Clearance 12 ml/min; Glucose 92 mg/dl (70-99); Potassium 3.9 mmol/L (3.5-5.1); Sodium 139 mmol/L (135-145); eGFR 11.02
--- NOTE | 2025-06-22 08:45 | W.PN.URO.CBU ---
Today's Communication / Plan
-
- Clamp CBI today (ordered)
- Trend Cr and lytes for post-obstructive diuresis
- Continue tamsulosin 0.4 mg qhs and finasteride 5 mg daily (ordered by Urology)
- F/U for outpatient voiding trial in 7-10 days
D/w patient.
D/w Hospitalist.
Assessment / Plan
-
Hematuria - secondary to rapid bladder decompression
Acute urinary retention
BPH w/ HOLGUIN
Bilateral hydronephrosis
Acute renal failure
H/H stable
Cr 7.4 => 6.2 => 5.5 => 4.9
UA +RBCs
Diagnosis
-
Date of Service: June 22, 2025
-
Patient Diagnosis:
Hematuria - secondary to rapid bladder decompression
Acute urinary retention
BPH w/ HOLGUIN
Bilateral hydronephrosis
Acute renal failure
Subjective
-
Urine clear in tubing on low rate CBI.
No clots in tubing.
Objective
-
Vital Signs
Temp Pulse Resp BP Pulse Ox
97.7 F 84 16 132/82 97
06/22/25 07:55 06/22/25 07:55 06/22/25 07:55 06/22/25 07:55 06/22/25 07:55
Intake and Output
06/21/25 06/22/25 06/23/25
06:59 06:59 06:59
Intake Total 960 / 960 1620 / 1620
Output Total 7745 / 7745 2250 / 2250
Balance -6785 / -6785 -630 / -630
Intake:
Oral fluids 960 / 960 1620 / 1620
Output:
True Urine Output from CBI 7745 / 7745 2250 / 2250
Laboratory Results
06/22/25 06:35
06/22/25 06:35
Physical Exam
-
General - well developed, well nourished, no acute distress
Abdomen - soft, non-tender, no CVAT
- 3-way catheter w/ clear UOP in tubing on low rate CBI
Skin - warm & dry with no rash
Neuro - AOx3, no motor deficits
Extremities - no clubbing, no cyanosis, no edema
Care Review
Data Reviewed
Discussed with: Hospitalist
CT Scan: Report Pers Reviewed and Image Pers Reviewed
[2025-06-22] MEDS: TOPROL XL 25 MG PO ×2 (09:03→19:59)
[2025-06-22] MEDS: NORVASC 10 MG PO (09:03)
[2025-06-22] MEDS: FLOMAX 0.4 MG PO (09:03)
--- NOTE | 2025-06-22 09:58 | W.PN.HOSP.TC ---
Today's Communication/Plan
-
Continue current care
Assessment / Plan
Assessment / Plan
Gen-AAOx3, NAD
HEENT-NC, AT, anicteric, clear oral mm
Neck-supple
CV-reg, no M, +S1/S2
Lungs-clear B/L
Abd-soft, NT, ND
Ext-no edema
Musculoskeletal-no cyanosis, clubbing
Skin-warm and dry
Neuro-grossly non-focal
Psych-calm, cooperative
DILLON -due to obstructive uropathy from bladder outlet obstruction, due to BPH. Bilateral hydronephrosis.
Boswell catheter inserted. Urology consulted. Nephrology consulted.
Creatinine trending down.
Gross hematuria -due to rapid bladder decompression. Continuous bladder irrigation per urology.
Normal anion gap metabolic acidosis -due to DILLON. Off bicarb drip. Metabolic acidosis resolved.
New diagnosis of atrial fibrillation -rates are improving with metoprolol. Cardiology following. TSH normal.
Hyperkalemia -due to DILLON, resolved. Hold lisinopril.
Acute thrombocytopenia - improved.
Essential hypertension -continue amlodipine.
Diverticulosis
vitamin D deficiency
Full code
Anticipated Discharge: > 48 hours
Subjective/Interval History
-
Date of Service: June 22, 2025
Patient seen and examined. No complaints.
Objective Data
-
Labs:
Laboratory Results
06/22/25
06:35
WBC 6.5
Hgb 10.2 L
Hct 30.4 L
Plt Count 132
Sodium 139
Potassium 3.9
Chloride 108 H
Carbon Dioxide 23
BUN 47 H
Creatinine 4.9 H*
Glucose 92
Calcium 7.9 L
Vital Signs:
Vital Signs
Temp Pulse Resp BP Pulse Ox
97.7 F 84 16 132/82 97
06/22/25 07:55 06/22/25 07:55 06/22/25 07:55 06/22/25 07:55 06/22/25 07:55
I&O
06/21/25 06/22/25 06/23/25
06:59 06:59 06:59
Intake Total 960 / 960 1620 / 1620
Output Total 7745 / 7745 2250 / 2250
Balance -6785 / -6785 -630 / -630
Review of Systems
-
History Source: Patient
All other systems: Reviewed and negative
--- NOTE | 2025-06-22 11:24 | W.PN.NEPH.PH ---
Today's Communication / Plan
-
Maintain half-normal saline
Follow BMP
No dialysis indication
Assessment/Plan
-
Impression:
DILLON (7.4) with bilateral hydronephrosis with suspected bladder outlet obstruction, baseline in 0.89 as of 05/30
Hyperkalemia
Nongap metabolic acidosis (AG12)
BPH
Hypertension
Plan:
DILLON: Suspected due to bilateral hydronephrosis from bladder outlet obstruction
Boswell placed
Creatinine corrected down to 4.9 and potassium down to 3.9 and remains grossly nonoliguric in setting of CBI with clearing of urine
No acute dialysis requirement
Will maintain half-normal saline at 100 cc/h
Closely follow BMP and electrolytes
Hyperkalemia improved with outlet obstruction release
Holding lisinopril and NSAIDs
HTN:
maintain amlodipine
May need to transition antihypertensive to alternative agent if edema that does not resolve
-
-
Date of Service: June 22, 2025
CC / HPI / ROS
-
Chief Complaint:
DILLON
Hyperkalemia
Metabolic acidosis
Hypertension
History of Present Illness:
Metabolic acidosis improving with IV fluids
Hemodynamically stable on amlodipine
Creatinine improving down to 4.9 and grossly nonoliguric via Boswell
Hyperkalemia resolved
Review of Systems:
Nonoliguric
Urine clearing with CBI
No chest pain or shortness of breath
Labs
-
Labs:
WBC 6.5 10^3/uL (4.8-10.8) 06/22/25 06:35
RBC 3.34 10^6/uL (4.70-6.10) L 06/22/25 06:35
Hgb 10.2 g/dL (13.0-18.0) L 06/22/25 06:35
Hct 30.4 % (39.0-52.0) L 06/22/25 06:35
Plt Count 132 10^3/uL (130-400) 06/22/25 06:35
Sodium 139 mmol/L (135-145) 06/22/25 06:35
Potassium 3.9 mmol/L (3.5-5.1) 06/22/25 06:35
Chloride 108 mmol/L (98-107) H 06/22/25 06:35
Carbon Dioxide 23 mmol/L (22-30) 06/22/25 06:35
BUN 47 mg/dl (9-20) H 06/22/25 06:35
Creatinine 4.9 mg/dL (0.7-1.3) H* 06/22/25 06:35
eGFR 11.02 06/22/25 06:35
Glucose 92 mg/dl (70-99) 06/22/25 06:35
Calcium 7.9 mg/dl (8.4-10.2) L 06/22/25 06:35
Albumin 4.3 g/dl (3.5-5.0) 06/20/25 11:20
Physical Exam
-
Vital Signs:
Vital Signs
Temp Pulse Resp BP Pulse Ox
97.7 F 84 16 132/82 97
06/22/25 07:55 06/22/25 07:55 06/22/25 07:55 06/22/25 07:55 06/22/25 07:55
Cardiovascular:: Regular rate and rhythm
Respiratory:: Bilateral: CTA
Lung Excursion:: Normal
Abdomen:: Nontender and Soft
Bowel Sounds:: Normal
Extremity Edema:: +2: Bilateral:
Boswell Catheter: Yes
Other Findings::
CBI
[2025-06-22 11:33] VITALS: BP 119/71
[2025-06-22 15:55] VITALS: BP 115/62
[2025-06-22 19:37] VITALS: BP 122/67
[2025-06-22 23:13] VITALS: BP 135/83
[2025-06-23] MEDS: 0.45%NACL 1000 IV ×2 (00:34→13:36)
[2025-06-23 03:18] VITALS: BP 128/76
[2025-06-23 06:00] VITALS: BMI 27.7
[2025-06-23 07:20] VITALS: BP 131/80
[2025-06-23] MEDS: TOPROL XL 25 MG PO (08:34)
[2025-06-23] MEDS: NORVASC 10 MG PO (08:35)
[2025-06-23] MEDS: PROSCAR 5 MG PO (08:35)
[2025-06-23] MEDS: FLOMAX 0.4 MG PO (08:35)
--- NOTE | 2025-06-23 09:30 | W.PN.HOSP.TC ---
Addendum entered and electronically signed by Shahzad Murray DO 06/23/25 14:51:
Creatinine trending down.
Urology, nephrology, cardiology okay with discharge today. Plan to discharge with Boswell catheter and follow-up with urology in the office for voiding trial.
Visiting nursing to be arranged. Discussed with nursing.
Updated patient's on the phone. All questions answered.
Original Note:
Today's Communication/Plan
-
Await BMP
Assessment / Plan
Assessment / Plan
Gen-AAOx3, NAD
HEENT-NC, AT, anicteric, clear oral mm
Neck-supple
CV-reg, no M, +S1/S2
Lungs-clear B/L
Abd-soft, NT, ND
Ext-no edema
Musculoskeletal-no cyanosis, clubbing
Skin-warm and dry
Neuro-grossly non-focal
Psych-calm, cooperative
DILLON -due to obstructive uropathy from bladder outlet obstruction, due to BPH. Bilateral hydronephrosis. Labs pending for today.
Boswell catheter inserted. Urology consulted. Nephrology consulted.
Urology recommending discharge with Boswell catheter and outpatient voiding trial.
Postobstructive diuresis noted, continue IV fluids.
Gross hematuria -due to rapid bladder decompression. Continuous bladder irrigation per urology.
Normal anion gap metabolic acidosis -due to DILLON. Off bicarb drip. Metabolic acidosis resolved.
New diagnosis of atrial fibrillation -rates are improving with metoprolol. Cardiology following. TSH normal.
Hyperkalemia -due to DILLON, resolved. Hold lisinopril.
Acute thrombocytopenia - improved.
Essential hypertension -continue amlodipine.
Diverticulosis
vitamin D deficiency
Full code
Anticipated Discharge: Within 24 hours
Subjective/Interval History
-
Date of Service: June 23, 2025
Patient seen and examined. No complaints.
Objective Data
-
Labs:
Laboratory Results
06/23/25
08:20
Sodium Pending
Potassium Pending
Chloride Pending
Carbon Dioxide Pending
BUN Pending
Creatinine Pending
Glucose Pending
Calcium Pending
Vital Signs:
Vital Signs
Temp Pulse Resp BP Pulse Ox
98.0 F 80 16 131/80 94
06/23/25 07:20 06/23/25 07:20 06/23/25 07:20 06/23/25 07:20 06/23/25 07:20
I&O
06/22/25 06/23/25 06/24/25
06:59 06:59 06:59
Intake Total 1620 / 1620 1770 / 1770
Output Total 2250 / 2250 3500 / 3500
Balance -630 / -630 -1730 / -1730
Review of Systems
-
History Source: Patient
All other systems: Reviewed and negative
--- NOTE | 2025-06-23 10:00 | W.PN.UPDATE ---
Update Note
Progress Note Update
Hematuria - secondary to rapid bladder decompression
Acute urinary retention
BPH w/ HOLGUIN
Bilateral hydronephrosis
Acute renal failure
Boswell catheter draining well w/o clots.
- Trend Cr and lytes for post-obstructive diuresis
- Continue tamsulosin 0.4 mg qhs and finasteride 5 mg on discharge
- F/U for outpatient voiding trial in 2 weeks
Urology will sign off.
D/w patient.
D/w Hospitalist.
[2025-06-23 10:03] LABS: Blood Urea Nitrogen 37 mg/dl (9-20); Calcium 8.5 mg/dl (8.4-10.2); Carbon Dioxide 23 mmol/L (22-30); Chloride 108 mmol/L (98-107); Estimated Creatinine Clearance 23 ml/min; Glucose 108 mg/dl (70-99); Potassium 3.5 mmol/L (3.5-5.1); Sodium 139 mmol/L (135-145); eGFR 23.58
[2025-06-23 11:10] VITALS: BP 130/60
--- NOTE | 2025-06-23 11:42 | W.PN.CARDCBS ---
Addendum entered and electronically signed by Erlin Mckinney DO 06/23/25 13:24:
I saw and examined the patient.
The Supervisor Public Health Nursing's note was reviewed and I agree with the note.
Comment:
Plan:
Pt declines consideration for anticoagulation even once cleared by urology as he is not enthusiastic about medications. He understands his bleeding risk vs stroke risk with recurrent afib.
Discussed consideration for an outpatient monitor through his outside deoiling machine operator to reevaluate for atrial fibrillation burden
He currently remains in sinus rhythm. Heart rate and blood pressure well-controlled.
Await records from his prior deoiling machine operator including recent cardiac testing including echocardiogram.
Consider echo if unable to obtain echo report
He remains stable from a cardiac standpoint. Please recall if needed.
Original Note:
Today's Communication / Plan
-
Await records from primary deoiling machine operator
Patient defers initiation of OAC due to ongoing hematuria
Urology has signed off and recommends Boswell catheter stay in place until outpatient voiding trial, urology is satisfied so long as patient is not having clots and expects hematuria to slowly improve following rapid bladder decompression
Impression / Plan
-
PCP: Allen Sanchez
Primary deoiling machine operator: Dr. Schulz at [facility]
Impression
Admitted with DILLON and Afib 06/20/25
DILLON
Possible BPH
Gross hematuria
Paroxysmal Afib, patient denies previous diagnosis of Afib
HTN
LBBB
DILLON in setting of bilateral hydronephrosis with suspected bladder outlet obstruction
BPH
Hyperkalemia
Previous cardiovascular testing:
Patient reports echo and stress test approximately 6 months ago through primary deoiling machine operator. Will attempt to obtain records
Plan:
-Neurology note reviewed by me on 06/23/2025 and they suspect hematuria is due to rapid bladder decompression. Patient also being treated for BPH and has been started on tamsulosin and finasteride. Urology is pleased that the Boswell catheter is
draining well without clots and recommends that patient be discharged to home with Boswell catheter in place with a voiding trial in 2 weeks and at this point they have signed off.
-From a cardiac standpoint patient is being followed for atrial fibrillation, patient reports this is a new diagnosis. We are awaiting records from his primary deoiling machine operator to confirm this.
-New to Toprol-XL 25 mg BID for HR control. Overall A-fib rates are controlled at less than 100
-[id number] score is 3 and reviewed with patient the need for OAC to decrease stroke risk, but patient is concerned about ongoing hematuria and wishes to defer the initiation of OAC until hematuria has improved and he would also like to review
with his primary deoiling machine operator.
-TSH was normal at 2.03
-Recommend outpatient sleep study, patient reports negative sleep study in the past
-Patient reports echo within the last 6 months, if I cannot obtain these records from his primary deoiling machine operator we will repeat echo this admission to look for any significant valve disease given the new diagnosis of A-fib
-Outpatient dose of amlodipine 10 mg daily for chronic HTN has been continued this admission
-Outpatient dose of lisinopril is on hold due to DILLON
Progress Note - Laundry Marker Supervisor
Subjective
Date of Service: June 23, 2025
He feels better, hematuria is painless, but ongoing
Objective
Labs:
06/22/25 06:35
06/23/25 08:20
Labs
Hgb 10.2 g/dL (13.0-18.0) L 06/22/25 06:35
Hct 30.4 % (39.0-52.0) L 06/22/25 06:35
Plt Count 132 10^3/uL (130-400) 06/22/25 06:35
Sodium 139 mmol/L (135-145) 06/23/25 08:20
Potassium 3.5 mmol/L (3.5-5.1) 06/23/25 08:20
BUN 37 mg/dl (9-20) H 06/23/25 08:20
Creatinine 2.6 mg/dL (0.7-1.3) H 06/23/25 08:20
Glucose 108 mg/dl (70-99) H 06/23/25 08:20
Vital Signs and I&O:
Vital Signs
Temp Pulse Resp BP Pulse Ox
98.0 F 80 16 131/80 94
06/23/25 07:20 06/23/25 07:20 06/23/25 07:20 06/23/25 07:20 06/23/25 07:20
Vital Signs
Temp Pulse Resp BP Pulse Ox
98.0 F 80 16 131/80 94
06/23/25 07:20 06/23/25 07:20 06/23/25 07:20 06/23/25 07:20 06/23/25 07:20
Intake & Output
06/21/25 06/22/25 06/23/25 06/24/25
06:59 06:59 06:59 06:59
Intake Total 960 / 960 1620 / 1620 1770 / 1770
Output Total 7745 / 7745 2250 / 2250 3500 / 3500
Balance -6785 / -6785 -630 / -630 -1730 / -1730
Physical Exam
Physical Exam
GEN: NAD
LUNGS: RA
CV: Afib on tele
--- NOTE | 2025-06-23 11:51 | W.PN.UPDATE ---
Update Note
Progress Note Update
I called the patient's primary money position officer, Dr. Leonides Schulz at [facility], and their office is closed until 1230 for lunch.
--- NOTE | 2025-06-23 13:12 | W.PN.NEPH.PH ---
Today's Communication / Plan
-
Continue IV fluid
Okay for discharge from renal standpoint as creatinine is improving and can follow-up with urology outpatient
Assessment/Plan
-
Impression:
DILLON (7.4) with bilateral hydronephrosis with suspected bladder outlet obstruction, baseline in 0.89 as of 05/30
Hyperkalemia
Nongap metabolic acidosis (AG12)
BPH
Hypertension
Plan:
DILLON: Suspected due to bilateral hydronephrosis from bladder outlet obstruction
Boswell placed
No acute dialysis requirement
Closely follow BMP and electrolytes
Hyperkalemia improved with outlet obstruction release
Holding lisinopril and NSAIDs
Creatinine down to 2.9
Will be okay with discharge with improving creatinine and outpatient follow-up with urology
Continue to follow for now
-
-
Date of Service: June 23, 2025
CC / HPI / ROS
-
Chief Complaint:
DILLON
Hyperkalemia
Metabolic acidosis
Hypertension
History of Present Illness:
Metabolic acidosis improving with IV fluids
Hemodynamically stable on amlodipine
Creatinine improving down to 4.9 and grossly nonoliguric via Boswell
Hyperkalemia resolved
Review of Systems:
Nonoliguric
Urine clearing with CBI
No chest pain or shortness of breath
Labs
-
Labs:
WBC 6.5 10^3/uL (4.8-10.8) 06/22/25 06:35
RBC 3.34 10^6/uL (4.70-6.10) L 06/22/25 06:35
Hgb 10.2 g/dL (13.0-18.0) L 06/22/25 06:35
Hct 30.4 % (39.0-52.0) L 06/22/25 06:35
Plt Count 132 10^3/uL (130-400) 06/22/25 06:35
Sodium 139 mmol/L (135-145) 06/23/25 08:20
Potassium 3.5 mmol/L (3.5-5.1) 06/23/25 08:20
Chloride 108 mmol/L (98-107) H 06/23/25 08:20
Carbon Dioxide 23 mmol/L (22-30) 06/23/25 08:20
BUN 37 mg/dl (9-20) H 06/23/25 08:20
Creatinine 2.6 mg/dL (0.7-1.3) H 06/23/25 08:20
eGFR 23.58 06/23/25 08:20
Glucose 108 mg/dl (70-99) H 06/23/25 08:20
Calcium 8.5 mg/dl (8.4-10.2) 06/23/25 08:20
Albumin 4.3 g/dl (3.5-5.0) 06/20/25 11:20
Physical Exam
-
Vital Signs:
Vital Signs
Temp Pulse Resp BP Pulse Ox
98.3 F 81 16 130/60 96
06/23/25 11:10 06/23/25 11:10 06/23/25 11:10 06/23/25 11:10 06/23/25 11:10
Cardiovascular:: Regular rate and rhythm
Respiratory:: Bilateral: CTA
Lung Excursion:: Normal
Abdomen:: Nontender and Soft
Bowel Sounds:: Normal
Extremity Edema:: +2: Bilateral:
Boswell Catheter: Yes
Other Findings::
CBI
[2025-06-23] MEDS: KCL 40 MEQ PO (13:22)
--- NOTE | 2025-06-23 14:47 | W.DS.TRANS ---
DC Summary - Business English Instructor
-
Discharge Instructions:
Discharge Diagnosis/Procedures Acute kidney injury, urinary retention,
hematuria, atrial fibrillation
Diet Regular
Activity As tolerated
Driving Restrictions As prior to admission
Bathing Restrictions None
Blood Work BMP next week with your primary care doctor
Other Services VN
Instructions:
Stand-Alone Forms:
Changes to Home Medications: No
Discharge Medications:
DC Medications w/original date entered in [employer]
amlodipine 10 mg tablet (Norvasc) 10 mg PO DAILY 06/20/25
fluticasone propionate 50 mcg/actuation nasal spray,suspension 1 spray intranasal BIDPRN PRN allergies 06/20/25
vitamins A,C,S-obeu-pjrlmw 4,296 mcg-226 mg-90 mg capsule 1 cap PO DAILY 06/20/25
finasteride 5 mg tablet 5 mg PO DAILY #30 tabs 06/23/25
metoprolol succinate 25 mg tablet,extended release 24 hr 25 mg PO BID #60 tabs 06/23/25
tamsulosin 0.4 mg capsule 0.4 mg PO DAILY #30 caps 06/23/25
Home Medication Changes
Stop lisinopril and ibuprofen. Avoid NSAIDs.
Pending Results: No
[2025-06-23 15:50] VITALS: BP 133/77
--- NOTE | 2025-06-23 16:33 | VNURNOTE ---
Home Health Liaison met with patient and spouse at bedside to discuss [facility] nurse/therapy, visits, schedule and homebound status. Patient is agreeable and understands that visits at home will be 2-3 x per week to assess and teach medical and park
management.
Patient is aware that [facility] will contact them for start of care in 1-2 days after discharge from . Provided contact number for [facility].
[facility] referral completed in [facility].
--- NOTE | 2025-06-23 17:55 | CM ---
MD entered order for discharge.
Spoke with pt and in room .
Pt home with Boswell cath.
Offered Vn he requested [facility] . Erika Mcgraw Liaison notified of referral.
Suzanna will drive him home.
PLAn Home with [facility] for Boswell care
== END 2025-06-23 16:46 | disposition home health service (06) | DRG 683 ==
LOC: 4 EAST ACU 15:22
PROVIDERS: Emergency Medicine; Physician Assistant Medical; ADMITTING PHYSICIAN Internal Medicine; ATTENDING PHYSICIAN Hospitalist; CONSULT PHYSICIAN Internal Medicine Cardiovascular Disease; CONSULT PHYSICIAN Specialist; CONSULT PHYSICIAN Surgery; EMERGENCY PHYSICIAN Emergency Medicine; FAMILY PHYSICIAN Family Medicine
DX: N17.9 Acute kidney failure, unspecified (principal); E87.20 Acidosis, unspecified; N13.8 Other obstructive and reflux uropathy; J98.11 Atelectasis; J90 Pleural effusion, not elsewhere classified; N40.1 Benign prostatic hyperplasia with lower urinary tract symptoms; N13.30 Unspecified hydronephrosis; N32.0 Bladder-neck obstruction; E87.5 Hyperkalemia; I10 Essential (primary) hypertension; F17.200 Nicotine dependence, unspecified, uncomplicated; R31.0 Gross hematuria; K57.30 Diverticulosis of large intestine without perforation or abscess without bleeding; E55.9 Vitamin D deficiency, unspecified; I48.91 Unspecified atrial fibrillation; R33.9 Retention of urine, unspecified; D69.6 Thrombocytopenia, unspecified; Z79.899 Other long term (current) drug therapy
CPT/HCPCS: 51702; 80048; 80053; 81003; 81015; 83735; 84443; 85014; 85018; 85025; 85027; 93005; 96374; 99285; J7030